=== PATIENT | female | born 1950 | race Caucasian/White ===

== ENCOUNTER → 2020-11-18 | Outpatient (CLI) ==
[~2020-11-18] MED LIST: CINN500C15 PO; VITMTA PO
== END ==
LOC: M LABSMTC 10:11 → EDUNIT# 10:20
PROVIDERS: ATTEND Anesthesiology
DX: Z01.812 Encounter for preprocedural laboratory examination (principal); Z20.822 Contact with and (suspected) exposure to COVID-19

== ENCOUNTER 2020-11-22 08:55 | Day surgery (SDC) | payer MEDICARE ==
[~2020-11-22] VITALS: Ht 170.2 cm; Wt 88.0 kg
[~2020-11-22 08:55] MED LIST changes: +NS 1,000 ML IV ONE
[2020-11-22] MEDS ORDERED: propofoL 200 MG/20 ML VIAL As Ordered ONE (09:21)
[2020-11-22] MEDS ORDERED: LIDOCAINE 2% 100MG/5ML SDV (FOR ANES.) As Ordered ONE (09:21)
--- NOTE | 2020-11-22 11:06 | ROOR ---
Patient Name: Maddie Bae Procedure Date: 11/22/2020 10:27 AM Date of : 1950 Age: 70 Room: [facility] Gender: Female Note Status: Finalized Procedure: Colonoscopy Indications: Screening for colorectal malignant neoplasm Providers: Jonatan Valentine MD Referring MD: Aung Lara DO Requesting Provider: Medicines: Monitored Anesthesia Care Complications: No immediate complications. Procedure: Pre-Anesthesia Assessment: - Prior to the procedure, a History and Physical was performed, and patient medications and allergies were reviewed. The patient is competent. The risks and benefits of the procedure and the sedation options and risks were discussed with the patient. All questions were answered and informed consent was obtained. Patient identification and proposed procedure were verified by the physician and the nurse in the procedure room. Mental Status Examination: alert and oriented. Airway Examination: normal oropharyngeal airway and neck mobility. Respiratory Examination: clear to auscultation. CV Examination: normal. Prophylactic Antibiotics: The patient does not require prophylactic antibiotics. Prior Anticoagulants: The patient has taken no previous anticoagulant or antiplatelet agents. ASA Grade Assessment: II - A patient with mild systemic disease. After reviewing the risks and benefits, the patient was deemed in satisfactory condition to undergo the procedure. The anesthesia plan was to use monitored anesthesia care (MAC). Immediately prior to administration of medications, the patient was re-assessed for adequacy to receive sedatives. The heart rate, respiratory rate, oxygen saturations, blood pressure, adequacy of pulmonary ventilation, and response to care were monitored throughout the procedure. The physical status of the patient was re-assessed after the procedure. The Colonoscope was introduced through the anus and advanced to the terminal ileum, with identification of the appendiceal orifice and IC valve. The colonoscopy was performed without difficulty. The patient tolerated the procedure well. The quality of the bowel preparation was good. The terminal ileum, ileocecal valve, appendiceal orifice, and rectum were photographed. Scope insertion time was 2 minutes. Scope withdrawal time was 12 minutes. The total duration of the procedure was 14 minutes. Findings: The perianal and digital rectal examinations were normal. The terminal ileum appeared normal. Two sessile polyps were found in the ascending colon. The polyps were 8 to 12 mm in size. These polyps were removed with a hot snare. Resection and retrieval were complete. Verification of patient identification for the specimen was done by the physician and nurse using the patient's name, date and medical record number. Estimated blood loss was minimal. Two sessile polyps were found in the recto-sigmoid colon. The polyps were 4 to 8 mm in size. These polyps were removed with a hot snare. Resection and retrieval were complete. Multiple small and large-mouthed diverticula were found from sigmoid to transverse colon. There was no evidence of diverticular bleeding. Non-bleeding external and internal hemorrhoids were found during retroflexion. The hemorrhoids were medium-sized. Impression: - The examined portion of the ileum was normal. - Two 8 to 12 mm polyps in the ascending colon, removed with a hot snare. Resected and retrieved. - Two 4 to 8 mm polyps at the recto-sigmoid colon, removed with a hot snare. Resected and retrieved. - Moderate diverticulosis from sigmoid to transverse colon. There was no evidence of diverticular bleeding. - Non-bleeding external and internal hemorrhoids. Recommendation: - Patient has a contact number available for emergencies. The signs and symptoms of potential delayed complications were discussed with the patient. Return to normal activities tomorrow. Written discharge instructions were provided to the patient. - High fiber diet. - Continue present medications. - Use fiber, for example Citrucel, Fibercon, Konsyl or Metamucil. - Await pathology results. - Telephone GI clinic for pathology results in 2 weeks. - Repeat colonoscopy in 3 years for surveillance based on pathology results. - Return to GI clinic if persistent symptoms or new symptoms. - Return to primary care physician. Procedure Code(s): --- Professional --- 05555, Colonoscopy, flexible; with removal of tumor(s), polyp(s), or other lesion(s) by snare technique Diagnosis Code(s): --- Professional --- Z12.11, Encounter for screening for malignant neoplasm of colon K64.8, Other hemorrhoids K63.5, Polyp of colon K57.30, Diverticulosis of large intestine without perforation or abscess without bleeding CPT copyright 2019 [employer]. All rights reserved. The codes documented in this report are preliminary and upon business systems administrator review may be revised to meet current compliance requirements. Jonatan Valentine MD Jonatan Valentine MD 11/22/2020 11:06:33 AM Electronically signed by Jonatan Valentine MD Number of Addenda: 0 Note Initiated On: 11/22/2020 10:27 AM Estimated Blood Loss: Estimated blood loss: none.
[2020-11-22 11:20] VITALS: BP 153/84
== END 2020-11-22 11:28 | disposition home or self-care (01) ==
LOC: M OPP 08:55
PROVIDERS: ATTEND Internal Medicine Gastroenterology
DX: Z12.11 Encounter for screening for malignant neoplasm of colon (principal); K63.5 Polyp of colon; K57.30 Diverticulosis of large intestine without perforation or abscess without bleeding; K64.8 Other hemorrhoids; Z79.811 Long term (current) use of aromatase inhibitors

== ENCOUNTER → 2022-12-29 | Outpatient (REF) | payer MEDICARE ==
[~2022-12-29] MED LIST changes: -NS 1,000 ML IV ONE
== END ==
LOC: M SFHCDERM 17:42
PROVIDERS: ATTEND Physician Assistant
DX: L82.1 Other seborrheic keratosis (principal)